=== PATIENT | female | born 1935 | race Caucasian/White ===

== ENCOUNTER 2018-02-28 09:34 | Day surgery (SDC) | payer OTHER ==
--- NOTE | 2018-02-26 15:26 | GHP ---
[f rep st] PREOP HISTORY AND PHYSICAL DATE OF ADMISSION: 02/28/2018 CHIEF COMPLAINT: Left knee pain. HISTORY OF PRESENT ILLNESS: The patient has experienced left knee pain after climbing some stairs. She reports the pain being the medial portion that has not improved with physical therapy or injectio ns. MRI exam revealed a displaced medial meniscal tear. She wishes to have surgery in order to reso lve the problem. ALLERGIES: Include morphine. CURRENT MEDICATIONS: Include , Florastor, losartan, meloxicam, metaxalone, methimazole, ni trofurantoin, pantoprazole, phenazopyridine,rosuvastatin, Toprol, and tramadol. PRIOR MEDICAL PROBLEMS: Include cancer. PRIOR SURGERIES: Include melanoma removal, breast cancer, and gallbladder. SOCIAL HISTORY: She has never been a smoker. She is not a drinker. PHYSICAL EXAMINATION: HEENT: Her pupils equal, round, and reactive to light. CHEST: Clear to ausc ultation. HEART: Regular rate and rhythm. ABDOMEN: Soft and nontender. EXTREMITIES: Left knee h as tenderness to the medial joint line with pain to provocative maneuvers. IMAGING DATA: MRI revealed a displaced medial meniscal tear. ASSESSMENT/PLAN: Patient has a left knee meniscal tear. The plan was to take her to the operating r oom to undergo a left knee scope. /[id number]/MODL
--- NOTE | 2018-02-28 08:40 | PDANEPAE ---
ANE Past Medical History - Cardiovascular History Hx Hypertension: Yes Hx Arrhythmias: No Hx Chest Pain: No Hx Coronary Artery / Peripheral Vascular Disease: No Hx CHF / Valvular Disease: No Hx Palpitations: No Cardiovascular History Comment: hyperthyoid increase HR takes metoprolol - Pulmonary History Hx COPD: No Hx Asthma/Reactive Airway Disease: No Hx Recent Upper Respiratory Infection: No Hx Oxygen in Use at Home: No Hx Sleep Apnea: No Sleep Apnea Screening Result - Last Documented: Negative - Neurologic History Hx Cerebrovascular Accident: No Hx Seizures: No Hx Dementia: No - Endocrine History Hx Diabetes: No Hypothyroid: No Hyperthyroid: Yes Obesity: no - Renal History Hx Renal Disorders: No - Liver History Hx Hepatic Disorders: No - Neurological & Psychiatric Hx Hx Neurological and Psychiatric Disorders: No - Cancer History Hx Cancer: Yes Cancer History Comment: breast,melanoma - Congenital Disorder History Hx Congenital Disorders: No - GI History GERD: mild Hx Gastrointestinal Disorders: Yes Gastrointestinal History Comment: abd distress with spices - Other Health History Other Health History: none - Chronic Pain History Chronic Pain: No - Surgical History Prior Surgeries: none recently. breast cancer, lumpectomy. melanoma ANE Review of Systems Review of Systems: - Exercise capacity METS (RN): 4 METS ANE Patient History - Allergies Allergies/Adverse Reactions: morphine Allergy (Intermediate, Verified 09/25/16 07:35) Vomiting azithromycin Allergy (Verified 02/28/18 10:24) Rash cortisone Allergy (Verified 02/28/18 10:24) Other-Enter Comments CONTRAST DYE Allergy (Intermediate, Uncoded 12/30/14 15:35) Hives tape Allergy (Uncoded 02/20/18 12:55) Other-Enter Comments - Home Medications Home Medications: B12 Injection 12/30/14 [Last Taken 1 Month Ago ~01/29/18] BIOTIN 12/30/14 [Last Taken 02/15/18] Crestor 12/30/14 [Last Taken 02/27/18] FLORASTOR 12/30/14 [Last Taken 02/15/18] Losartan Potassium 12/30/14 [Last Taken 02/27/18] Metoprolol Oral Susp (RX) 12/30/14 [Last Taken 02/27/18] Levsin 02/20/18 [Last Taken 2 Years Ago ~02/29/16] Methimazole 02/20/18 [Last Taken 02/28/18 06:00] Pantoprazole Sodium 02/20/18 [Last Taken 02/28/18 06:00] - Anes Hx Anes Hx: no prior problems - Smoking Hx Smoking Status: Never smoked Marijuana use: No - Alcohol Use Alcohol Use: Rarely - Family Anes Hx Family Anes Hx: neg - N/A Family Hx Anesthesia Complications: NONE ANE Labs/Vital Signs - Vital Signs Height: 170.18 cm Weight: 76.657 kg ANE Physical Exam - Airway Neck exam: decreased ROM Mallampati Score: Class 1 Mouth exam: normal dental/mouth exam - Pulmonary Pulmonary: no respiratory distress, no rales or rhonchi, clear to auscultation - Cardiovascular Cardiovascular: regular rate and rhythym, no murmur, rub, or gallop - ASA Status ASA Status: III ANE Anesthesia Plan Anesthesia Plan: GA w LMA Total IV Anesthesia: No
[2018-02-28] MEDS ORDERED: LIDOCAINE 1% 2 ML INJ ID PRN (09:35)
[2018-02-28] MEDS ORDERED: LR 1,000 ML IV ONE (09:35)
[2018-02-28] MEDS ORDERED: ceFAZolin 2 GM/SWFI 2 GM/20 ML SYR IVP ONE (09:58)
[2018-02-28] MEDS ORDERED: PREGABALIN 150 MG CAP PO ONE (09:58)
[2018-02-28] MEDS ORDERED: ACETAMINOPHEN 500 MG TAB PO ONE (09:58)
--- NOTE | 2018-02-28 09:58 | PDHPUP ---
History & Physical Update H&P update statement: This history and physical update is based on an assessment of the patient which was completed after admission or registration (within 24 hours), but prior to the surgery/procedure. H&P update: H&P reviewed & patient examined, no change in patient's condition since H&P completed
[2018-02-28] MEDS ORDERED: BUPIVACAINE/EPI 0.5% 30 ML SDV ONE (10:12)
[2018-02-28] MEDS ORDERED: ceFAZolin 2 GM/DEXTROSE 100 ML IV ONE (10:15)
[2018-02-28] MEDS ORDERED: fentaNYL 100 MCG/2 ML INJ ONE ×2 (10:27→11:07)
[2018-02-28] MEDS ORDERED: PROPOFOL 200 MG/20 ML VIAL ONE (10:27)
[2018-02-28] MEDS ORDERED: ONDANSETRON 4 MG/2 ML VIAL ONE (10:30)
[2018-02-28] MEDS ORDERED: DEXAMETHASONE 4 MG/ML VIAL ONE (10:32)
[2018-02-28] MEDS ORDERED: PROMETHAZINE HCL 25 MG/ML INJ IVP PRN ×2 (11:14→11:36)
[2018-02-28] MEDS ORDERED: epHEDrine SULFATE 10 MG/ML SYR IVP PRN (11:14)
[2018-02-28] MEDS ORDERED: ACETAMINOPHEN 500 MG TAB PO PRN (11:14)
[2018-02-28] MEDS ORDERED: LABETALOL HCL 5 MG/ML 20 ML MDV IVP PRN (11:14)
[2018-02-28] MEDS ORDERED: oxyCODONE IR 5 MG TAB PO PRN ×2 (11:14→11:36)
[2018-02-28] MEDS ORDERED: LR 500 ML IV PRN (11:14)
[2018-02-28] MEDS ORDERED: NALOXONE HCL 0.4 MG/ML INJ IVP PRN (11:14)
[2018-02-28] MEDS ORDERED: ONDANSETRON 4 MG/2 ML VIAL IVP PRN ×2 (11:14→11:36)
[2018-02-28] MEDS ORDERED: PHENYLEPHRINE HCL 100 MCG/ML SYR IVP PRN (11:14)
[2018-02-28] MEDS ORDERED: fentaNYL 100 MCG/2 ML INJ IVP PRN (11:14)
[2018-02-28] MEDS ORDERED: HYDROCODONE/APAP 5/325 TAB PO PRN (11:14)
[2018-02-28] MEDS ORDERED: KETOROLAC 30 MG/1 ML SDV ONE (11:21)
[2018-02-28] MEDS ORDERED: LACTULOSE 20 GM/30 ML UDCUP PO PRN (11:36)
[2018-02-28] MEDS ORDERED: PROMETHAZINE HCL 25 MG SUPPR PR PRN (11:36)
[2018-02-28] MEDS ORDERED: ONDANSETRON DISINTEGRATING 4 MG TAB PO PRN (11:36)
[2018-02-28] MEDS ORDERED: POLYETHYLENE GLYCOL 3350 17 GM PKT PO PRN (11:36)
[2018-02-28] MEDS ORDERED: METOCLOPRAMIDE 10 MG/2 ML VIAL IVP PRN (11:36)
[2018-02-28] MEDS ORDERED: traMADol 50 MG TAB PO PRN (11:36)
[2018-02-28] MEDS ORDERED: KETOROLAC 15 MG/1 ML SDV IVP ONE (11:36)
[2018-02-28] MEDS ORDERED: MAGNESIUM HYDROXIDE 30 ML UDCUP PO PRN (11:36)
[2018-02-28] MEDS ORDERED: diphenhydrAMINE 25 MG CAP PO PRN (11:36)
[2018-02-28] MEDS ORDERED: BISACODYL 10 MG SUPP PR PRN (11:36)
[2018-02-28] MEDS ORDERED: TAPENTADOL HCL 50 MG TAB PO PRN (11:36)
--- NOTE | 2018-02-28 11:36 | POSTOPPROG ---
Post Op Note Date of Operation: 02/28/18 Surgeon: Mary Summers Anesthesia: LMA Pre-op Diagnosis: l mmt/lmt Procedure: l knee scope with partial med/lat menisectomy w/ chondroplasty Inf/Abcess present in the surg proc area at time of surgery?: No Depth: Deep Incisional (Fascial) EBL: 50-100
[2018-02-28] MEDS ORDERED: LR 1,000 ML IV SCH (12:00)
[2018-02-28] MEDS ORDERED: ACETAMINOPHEN 325 MG TAB PO SCH (12:00)
--- NOTE | 2018-02-28 12:42 | POSTANESTH ---
Post Anesthetic Evaluation Cardiovascular Status: Normal, Stable Respiratory Status: Normal, Stable Level of Consciousness/Mental Status: Can Participate in Eval Pain Control: Adequate, Prn Tx Ordered Nausea/Vomiting Control: Adequate, Prn Tx Ordered Complications Possibly Related to Anesthesia: None Noted
--- NOTE | 2018-02-28 13:50 | GOP ---
[f rep st] OPERATIVE REPORT DATE OF OPERATION: 02/28/2018 SURGEON: Mary Summers MD ANESTHESIA: By LMA. 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 PROCEDURE PERFORMED: Left knee arthroscopy with partial medial and partial lateral meniscectomy with chondroplasty of the patellofemoral compartment. FINDINGS: INDICATIONS: This is an 83-year-old female with a several-month history of left knee pain worsening with use with time. MRI exam revealed some mild osteoarthritic changes along with a large medial meni scal tear and a smaller lateral meniscal tear. She wishes to have surgery in order to resolve the pro blem. DESCRIPTION OF PROCEDURE: The patient was brought to the operating room after the left side had been identified as the correct side by the patient, nurse and physician. Once in the operating room, she was placed under general anesthesia using LMA. Once asleep, a tourniquet was placed around the upper portion of the left thigh, and both legs were placed in an appropriate leg jeronimo. The left lower ext remity was then sterilely prepped and draped in the usual fashion using GSI solution. Once prepped an d draped, limb was exsanguinated, tourniquet inflated to 250 mmHg. An incision was made in the supero medial portion of the knee with an outflow trocar introduced without difficulty. A second incision wa s made lateral to the patellar tendon between the inferior pole of the patella and tib plateau with a camera introduced without difficulty. Inspection of the joint revealed some grade 3 chondral changes of the patella, with grade 2 chondral changes noted to the trochlea. Further inspection revealed the ACL ligament to be intact. Inspection of the medial compartment revealed a large fragmented tear of the body and posterior horn of the medial meniscus involving a significant proportion of the medial m eniscus. Inspection of the lateral compartment revealed some grade 2 chondral changes along with some fraying of the posterior horn and body of the lateral meniscus. Therefore, a third incision was made medial to the patellar tendon between the inferior pole of the patella and tib plateau. Alternating using a straight biter and a 4.5 mm smooth shaver, was used to debride and debulk the tears of the me dial and lateral meniscus and remove the loose fragments of cartilage from the patella. Once complete d, all instruments were removed from the knee with 30 cc of Marcaine infused in the knee joint. The 3 portal sites were closed using 3-0 nylon suture in a [id number] type stitch. The wounds were dr essed with Xeroform, 4 x 4, and wrapped in Webril. Tourniquet was deflated at 22 minutes. Leg was com pletely undraped in the operating room, tourniquet removed from the thigh and an Basil wrap placed arou nd the knee. Right leg was taken out of its leg jeronimo. She was placed supine. She was woken up, extu bated, and transferred onto a stretcher, and sent to recovery room in good condition. TOURNIQUET TIME: 22 minutes. /[id number]/MODL
[2018-02-28 14:42] VITALS: BP 156/70
[2018-02-28] MEDS ORDERED: FAMOTIDINE 20 MG TAB PO SCH (21:00)
[2018-02-28] MEDS ORDERED: ASPIRIN 81 MG CHEWABLE TAB PO SCH (21:00)
[2018-02-28] MEDS ORDERED: SENNOSIDES/DOCUSATE SODIUM TAB PO SCH (21:00)
== END 2018-02-28 15:05 | disposition home or self-care (01) ==
LOC: FSGY 09:34
PROVIDERS: ATTEND Orthopaedic Surgery
DX: S83.242A Other tear of medial meniscus, current injury, left knee, initial encounter (principal); S83.282A Other tear of lateral meniscus, current injury, left knee, initial encounter; M13.862 Other specified arthritis, left knee
CPT/HCPCS: J0690; J1100; J1885; J2405; J2704; J3010

== ENCOUNTER 2018-05-27 10:02 | Emergency (ER) | payer OTHER ==
--- NOTE | 2018-05-27 10:30 | EDPHY ---
H & P Stated Complaint: Pt. states x1 week ago and today small amt of blood in tolrod ,denies pain Time Seen by Provider: 05/27/18 10:17 HPI/ROS: CHIEF COMPLAINT: Small clots of blood in stool HISTORY OF PRESENT ILLNESS: Patient is an 83-year-old female who comes to the emergency depart with her complaining of an episode of several small clots of blood mixed into her stool. She states that the same thing happened last week. They look like little sunflower seed size clots. They collected a sample in a zip lock bag. The smashed the clots and they were little spots of blood. After the previous episode they saw their primary doctor who recommended that they follow up again with Dr. Lane the gastrologist. The patient had a clean colonoscopy 1 year ago except for several small diverticuli. She denies having any abdominal pain. No vomiting. No fever. No lightheadedness. She was asymptomatic for about a week until again this morning when she passed several small clots in side of her stool. She states that she is not that concerned except that they are leaving for a trip on Tuesday and want to make sure that it is safe. She does occasionally of heartburn type symptoms but controlled with Protonix. Severity: Mild Modifying factors: None REVIEW OF SYSTEMS: Constitutional: denies: chills, fever, recent illness, recent injury EENTM: denies: blurred vision, double vision, nose congestion Respiratory: denies: cough, shortness of breath Cardiac: denies: chest pain, irregular heart rate, lightheadedness, palpitations Gastrointestinal/Abdominal: See HPI denies: abdominal pain, diarrhea, nausea, vomiting, blood streaked stools Genitourinary: denies: dysuria, frequency, hematuria, pain Musculoskeletal: denies: joint pain, muscle pain Skin: denies: lesions, rash, jaundice, bruising Neurological: denies: headache, numbness, paresthesia, tingling, dizziness, weakness Hematologic/Lymphatic: denies: blood clots, easy bleeding, easy bruising Immunologic/allergic: denies: HIV/AIDS, transplant EXAM: GENERAL: Well-appearing, well-nourished and in no acute distress. HEAD: Atraumatic, normocephalic. EYES: Pupils equal round and reactive to light, extraocular movements intact, sclera anicteric, conjunctiva are normal. ENT: TMs normal, nares patent, oropharynx clear without exudates. Moist mucous membranes. NECK: Normal range of motion, supple without lymphadenopathy or JVD. LUNGS: Breath sounds clear to auscultation bilaterally and equal. No wheezes rales or rhonchi. HEART: Regular rate and rhythm without murmurs, rubs or gallops. ABDOMEN: Soft, nontender, normoactive bowel sounds. No guarding, no rebound. No masses appreciated. BACK: No CVA tenderness, no spinal tenderness, step-offs or deformities EXTREMITIES: Normal range of motion, no pitting or edema. No clubbing or cyanosis. NEUROLOGICAL: Cranial nerves II through XII grossly intact. Normal speech, normal gait. 5/5 strength, normal movement in all extremities, normal sensation , normal reflexes PSYCH: Normal mood, normal affect. SKIN: Warm, dry, normal turgor, no visible rashes or lesions. Source: Patient Exam Limitations: No limitations - Personal History Tetanus Vaccine Date: 2007 - Medical/Surgical History Hx Asthma: No Hx Chronic Respiratory Disease: No Hx Diabetes: No Hx Cardiac Disease: No Hx Renal Disease: No Hx Cirrhosis: No Hx Alcoholism: No Hx HIV/AIDS: No Hx Splenectomy or Spleen Trauma: No Other PMH: HTN, GALL BLADDER, BREAST CA REMISSION, MELANOMA REMISSION, LEFT LUMPECTOMY, HYPERTHYROID, REFLUX - Family History Significant Family History: No pertinent family hx - Social History Smoking Status: Never smoked Alcohol Use: None Drug Use: None Constitutional: Initial Vital Signs Temperature (C) 36.5 C 05/27/18 10:10 Heart Rate 93 05/27/18 10:10 Respiratory Rate 16 05/27/18 10:10 Blood Pressure 152/83 H 05/27/18 10:10 O2 Sat (%) 95 05/27/18 10:10 O2 Delivery Mode Room Air Allergies/Adverse Reactions: morphine Allergy (Intermediate, Verified 05/27/18 10:14) Vomiting azithromycin Allergy (Verified 05/27/18 10:14) Rash cortisone Allergy (Verified 05/27/18 10:14) Other-Enter Comments CONTRAST DYE Allergy (Intermediate, Uncoded 05/27/18 10:14) Hives tape Allergy (Uncoded 05/27/18 10:14) Other-Enter Comments Home Medications: Medication Instructions Recorded B12 Injection 12/30/14 BIOTIN 12/30/14 Crestor 12/30/14 FLORASTOR 12/30/14 Losartan Potassium 12/30/14 Metoprolol Oral Susp (RX) 12/30/14 Levsin PRN 02/20/18 Methimazole 02/20/18 Pantoprazole Sodium 02/20/18 Medical Decision Making ED Course/Re-evaluation: Patient is well appearing. She has no complaints of pain or weakness. She has a sample with her that shows 2-3 small clots of blood about the size a sunflower seeds. We discussed possible etiologies. I will check her H&H. Abdominal exam is completely benign. I do not think CT imaging is necessary at this time. Patient and are relieved with this plan. 11:15 a.m. the patient remains asymptomatic. Her hematocrit is the same as her baseline. Her abdominal exam remains benign. I recommended that she follow up with her gastrologist but that it does not necessarily need to happen today or emergently. She and her agree with this plan. We discussed indications for returning to the emergency department. Differential Diagnosis: Partial list of the Differential diagnosis considered include but were not limited to; diverticulitis, lower GI bleed and although unlikely based on the history and physical exam, I also considered hernia, hemorrhoid, ischemia, aneurysm. I discussed these differential diagnoses and the plan with the patient as well as the usual and expected course. The patient understands that the diagnosis is provisional and that in medicine we are not always correct and that further workup is often warranted. Usual and customary warnings were given. All of the patient's questions were answered. The patient was instructed to return to the emergency department should the symptoms at all worsen or return, otherwise to followup with the physician as we discussed. - Data Points Laboratory Results: 05/27/18 10:47 POC Sodium 142 mEq/L mEq/L (135-145) POC Potassium 4.3 mEq/L mEq/L (3.3-5.0) POC Chloride 106.0 mEq/L mEq/L (97-110) POC Total CO2 26 mEq/L mEq/L (22-31) POC BUN 18 mg/dL mg/dL (7-23) POC Creatinine 1.1 mg/dL H mg/dL (0.6-1.0) POC Glucose 88 mg/dL mg/dL (70-100) POC Calcium 9.4 mg/dL mg/dL (8.5-10.4) POC Total Bilirubin 0.7 mg/dL mg/dL (0.1-1.4) POC AST 30 IU/L IU/L (14-46) POC ALT 20 IU/L IU/L (9-52) POC Alk Phosphatase 74 IU/L IU/L (38-126) POC Total Protein 6.5 g/dL g/dL (6.3-8.2) POC Albumin 3.5 g/dL g/dL (3.5-5.0) Point of Care Test Results: CBC CBC Collection Date 05/27/18 CBC Collection Time 10:39 WBC 5.2 RBC 4.57 HGB 13.4 HCT 41.9 PLT 209 Neut # 3.4 Neut 65.2 LYMPH # 1.3 LYMPH 24.3 Other WBC # 0.5 Other WBC 10.5 MCV 91.7 Chemistry 05/27/18 10:47 POC Sodium 142 mEq/L mEq/L (135-145) POC Potassium 4.3 mEq/L mEq/L (3.3-5.0) POC Chloride 106.0 mEq/L mEq/L (97-110) POC Total CO2 26 mEq/L mEq/L (22-31) POC BUN 18 mg/dL mg/dL (7-23) POC Creatinine 1.1 mg/dL H mg/dL (0.6-1.0) POC Glucose 88 mg/dL mg/dL (70-100) POC Calcium 9.4 mg/dL mg/dL (8.5-10.4) POC Total Bilirubin 0.7 mg/dL mg/dL (0.1-1.4) POC AST 30 IU/L IU/L (14-46) POC ALT 20 IU/L IU/L (9-52) POC Alk Phosphatase 74 IU/L IU/L (38-126) POC Total Protein 6.5 g/dL g/dL (6.3-8.2) POC Albumin 3.5 g/dL g/dL (3.5-5.0) Departure - Departure Disposition: Home, Routine, Self-Care Clinical Impression: GI bleeding Qualifiers: GI bleed type/associated pathology: unspecified gastrointestinal hemorrhage type Qualified Code(s): K92.2 - Gastrointestinal hemorrhage, unspecified Condition: Fair Instructions: Gastrointestinal Bleeding (ED) Referrals: Anita Joshi MD [Primary Care Provider] - As per Instructions Sunil Lane MD [Medical Doctor] - As per Instructions
[2018-05-27 11:39] VITALS: BP 136/72
== END 2018-05-27 11:25 | disposition home or self-care (01) ==
LOC: CED 10:02
DX: K92.2 Gastrointestinal hemorrhage, unspecified (principal)
CPT/HCPCS: 80053-PO

== ENCOUNTER → 2018-07-11 | Outpatient (CLI) | payer OTHER | LOC: FIMAGING 10:39 | PROVIDERS: ATTEND Internal Medicine | DX: R07.9 Chest pain, unspecified (principal); I51.7 Cardiomegaly; Z85.3 Personal history of malignant neoplasm of breast; I25.10 Atherosclerotic heart disease of native coronary artery without angina pectoris; R06.02 Shortness of breath; R93.1 Abnormal findings on diagnostic imaging of heart and coronary circulation; Z85.820 Personal history of malignant melanoma of skin ==

== ENCOUNTER → 2018-07-19 | Outpatient (CLI) | payer OTHER | LOC: BHFA 13:30 | PROVIDERS: ATTEND Internal Medicine Cardiovascular Disease | DX: R07.9 Chest pain, unspecified (principal) | CPT/HCPCS: 78452; 93017; A9500; J2785 ==

== ENCOUNTER → 2018-08-04 | Outpatient (CLI) | payer OTHER | LOC: BHFA 13:15 | PROVIDERS: ATTEND Internal Medicine Cardiovascular Disease | DX: I25.10 Atherosclerotic heart disease of native coronary artery without angina pectoris (principal) ==

== ENCOUNTER → 2018-09-07 | Outpatient (CLI) | payer OTHER | LOC: FIMAGING 10:36 | PROVIDERS: ATTEND Internal Medicine Gastroenterology | DX: R13.11 Dysphagia, oral phase (principal); K22.4 Dyskinesia of esophagus; Z85.3 Personal history of malignant neoplasm of breast; Z92.3 Personal history of irradiation; Z85.820 Personal history of malignant melanoma of skin | CPT/HCPCS: 74230; 92611; G8996; G8997; G8998 ==

== ENCOUNTER → 2019-02-06 | Outpatient (CLI) | payer OTHER | LOC: CIMAGING 12:24 | PROVIDERS: ATTEND Family Medicine | DX: M19.011 Primary osteoarthritis, right shoulder (principal) | CPT/HCPCS: 73030-PO ==